=== PATIENT | female | born 1965 ===

== ENCOUNTER 2025-08-26 18:45 | Emergency (ER) | payer BC ==
[2025-08-26] MEDS: Fluorescein 1 MG Ophth Strip EYERT ONE (19:19)
[2025-08-26] MEDS: Fluorescein 1 MG Ophth Strip EYELF ONE (19:19)
== END 2025-08-26 19:37 | disposition home or self-care (01) ==
LOC: DL.ED 18:45
DX: S05.02XA Injury of conjunctiva and corneal abrasion without foreign body, left eye, initial encounter (principal); F17.200 Nicotine dependence, unspecified, uncomplicated; Z86.16 Personal history of COVID-19; X58.XXXA Exposure to other specified factors, initial encounter
CPT/HCPCS: 99283; A9270; J3490

== ENCOUNTER 2025-08-28 04:25 | Emergency (ER) | payer BC ==
[2025-08-28 04:52] LABS: APPEARANCE,URINE SLIGHTLY CLOUDY (CLEAR); GLUCOSE,URINE NEGATIVE (NEGATIVE); OCCULT BLOOD,URINE LARGE (NEGATIVE)
[2025-08-28] MEDS: Take Home: Ciprofloxacin HCl 500 MG, 6 Tab Pack PO ONE (05:01)
[2025-08-28 05:03] LABS: EPITHELIAL CELLS,URINE FEW /HPF (NOT SEEN)
== END 2025-08-28 05:08 | disposition home or self-care (01) ==
LOC: DL.ED 04:25
DX: N39.0 Urinary tract infection, site not specified (principal); R31.0 Gross hematuria; F17.210 Nicotine dependence, cigarettes, uncomplicated; Z88.2 Allergy status to sulfonamides; Z86.16 Personal history of COVID-19; Z79.899 Other long term (current) drug therapy
CPT/HCPCS: 81001; 87086; 99283; A9270; 87088; 87186